=== PATIENT | male | born 1990 | race Caucasian/White ===

== ENCOUNTER 2017-10-05 09:36 | Emergency (ER) | payer SELFPAY ==
[2017-10-05] MEDS ORDERED: CEFTRIAXONE INJ 250 MG VIAL IM ONE ×2 (10:10→10:21)
[2017-10-05] MEDS ORDERED: LIDOCAINE 1% INJ-PF (10 MG/ML) 30 ML SDV INFIL ONE (10:21)
[2017-10-05 10:26] LABS: APPEARANCE,URINE CLEAR; BILIRUBIN,URINE NEGATIVE (NEGATIVE); GLUCOSE, URINE NEGATIVE (NEGATIVE); KETONES,URINE NEGATIVE (NEGATIVE); LEUKOCYTE ESTERASE,URINE NEGATIVE (NEGATIVE); NITRITE,URINE NEGATIVE (NEGATIVE); PROTEIN,URINE NEGATIVE (NEGATIVE); URINE SPECIFIC GRAVITY 1.004; UROBILINOGEN,URINE NEGATIVE mg/dL (<2.0)
--- NOTE | 2017-10-05 11:08 | ER Document Report ---
ED GI/ - General Chief Complaint: Penile Discharge Stated Complaint: GENITAL DISCHARGE Time Seen by Provider: 10/05/17 10:01 Information source: Patient Notes: Patient is a 27-year-old white male comes emergency room today complaining of a discharge from his penis. 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 When he got back to his house he and his had sexual intercourse. Patient drove back here to [place] and this morning woke up and saw a white pus coming out the end of the penis. Patient states that they have been for 5 years does not believe that she is having any extramarital affairs however he does not and cannot explain the white discharge from his penis. Patient himself denies any extramarital sexual endeavors on his own. TRAVEL OUTSIDE OF THE [place] IN LAST 30 DAYS: No - HPI Patient complains to provider of: Other - Penile discharge Onset: This morning Timing/Duration: Sudden, Gone Quality of pain: No pain Severity at maximum: Mild Severity in ED: Mild Pain Level: 1 Location: Other - Penis - Related Data Allergies/Adverse Reactions: No Known Allergies Allergy (Unverified 10/05/17 09:40) Past Medical History - General Information source: Patient - Social History Smoking Status: Current Every Day Smoker Cigarette use (# per day): Yes - 1 pack per day Chew tobacco use (# tins/day): No Smoking Education Provided: Yes Frequency of alcohol use: Social Drug Abuse: None Lives with: Family Family History: Reviewed & Not Pertinent Patient has suicidal ideation: No Patient has homicidal ideation: No Renal/ Medical History: Denies: Hx Peritoneal Dialysis Review of Systems - Review of Systems Constitutional: No symptoms reported EENT: No symptoms reported Cardiovascular: No symptoms reported Respiratory: No symptoms reported Gastrointestinal: No symptoms reported Genitourinary: No symptoms reported Male Genitourinary: Penile discharge Musculoskeletal: No symptoms reported Skin: No symptoms reported Hematologic/Lymphatic: No symptoms reported Neurological/Psychological: No symptoms reported -: Yes All other systems reviewed and negative Physical Exam - Vital signs Vitals: Temp Pulse Resp BP Pulse Ox 98.4 F 84 16 131/62 H 98 10/05/17 09:40 10/05/17 09:40 10/05/17 09:40 10/05/17 09:40 10/05/17 09:40 Interpretation: Hypertensive - General General appearance: Appears well - Respiratory Respiratory status: No respiratory distress Chest status: Nontender Breath sounds: Normal Chest palpation: Normal - Cardiovascular Rhythm: Regular Heart sounds: Normal auscultation Murmur: No - Abdominal Inspection: Normal Distension: No distension Bowel sounds: Normal Tenderness: Nontender Organomegaly: No organomegaly - Genitourinary Inspection: Normal, Other - Examination patient's penis and testicles did not find any abnormalities. There was no discharge being able to be milked out of the penis. Patient had no discomfort or pain anywhere around the testicular area or the glans penis area. Patient is circumcised and appears normal.. No: Blood at meatus, Penile discharge - Neurological Neuro grossly intact: Yes Cognition: Normal Orientation: AAOx4, Disoriented to time [place] Coma Scale Eye Opening: Spontaneous [place] Coma Scale Verbal: Oriented [place] Coma Scale Motor: Obeys Commands [place] Coma Scale Total: 15 Speech: Normal Course - Vital Signs Vital signs: Temp Pulse Resp BP Pulse Ox 97.8 F 64 16 124/71 99 10/05/17 11:15 10/05/17 11:15 10/05/17 11:15 10/05/17 11:15 10/05/17 11:15 - Transfer of Care Notes: 10/05/17 22:03 Given that are gonorrhea and Chlamydia are done in-house on urine. I learned that it takes approximately 5-6 hours to get the results back. Patient's urine came back with no trichomonas and it felt that we would treat him just in case. He was given 250 mg of Rocephin IM I sent him home on doxycycline 1 tab p.o. twice daily for 14 days as well as Cipro which was recommended. I told the patient to contact here tomorrow or Saturday for the results of the gonorrhea and chlamydia if they were negative I felt he was clear not to take him unless he started with symptoms. Patient voiced understanding. Discharge - Discharge Clinical Impression: Possible exposure to STD Condition: Good Disposition: HOME, SELF-CARE Instructions: Prostatitis ([facility]) Additional Instructions: Home rest. Medication as prescribed. As I have indicated to you it takes 5-6 hours to get these results back. If you would leave your number or contact [facility] medical records on Saturday if those are both negative you do not have to take the antibiotics. Of your status with these 2 there is highly suggested that you contact medical records on Saturday to get a final confirmation test. This will give you an indication whether you need to take the antibiotics or not. If you are be safe start the antibiotics today. Return to ER. Concerns or problems. Prescriptions: Ciprofloxacin HCl [Cipro 500 mg Tablet] 500 mg PO BID #28 tablet Doxycycline Hyclate 100 mg PO BID #28 capsule Forms: Smoking Cessation Education, Elevated Blood Pressure
[2017-10-05 11:19] VITALS: BP 124/71
[2017-10-05 11:51] LABS: CHLAM PCR NOT DETECTED (NOT DETECT)
== END 2017-10-05 11:19 | disposition home or self-care (01) ==
LOC: ER 09:36
DX: R36.9 Urethral discharge, unspecified (principal); F17.210 Nicotine dependence, cigarettes, uncomplicated
CPT/HCPCS: 99283; 96372; 81001; 87491; 87591; J3490; J0696